=== PATIENT | male | born 1980 | race African-American/Black ===

== ENCOUNTER 2019-06-11 11:22 | Emergency (ER) | payer SELFPAY ==
[2019-06-11 11:46] VITALS: BP 112/66
[2019-06-11] MEDS ORDERED: LIDOCAINE 1% INJ-PF (10 MG/ML) 30 ML SDV INJ ONE (12:34)
--- NOTE | 2019-06-11 12:38 | ER Document Report ---
HPI - HPI Time Seen by Provider: 06/11/19 12:21 Notes: Patient is a 38-year-old male presenting to the emergency department with chief complaint of laceration. Patient reports he was hanging around with a knife last night when it slipped and cut his left wrist. He states this occurred approximately 12 hours prior to arrival. He reports his tetanus shot is up-to-date. Past Medical History - General Information source: Patient - Social History Smoking Status: Never Smoker Frequency of alcohol use: None Drug Abuse: None Lives with: Alone Family History: Reviewed & Not Pertinent - Medical History Medical History: Negative Surgical Hx: Negative - Immunizations Hx Diphtheria, Pertussis, Tetanus Vaccination: Yes Vertical Provider Document - CONSTITUTIONAL Notes: PHYSICAL EXAMINATION: GENERAL: Well-appearing, well-nourished and in no acute distress. HEAD: Atraumatic, normocephalic. EYES: Pupils equal round extraocular movements intact, conjunctiva are normal. ENT: Nares patent NECK: Normal range of motion LUNGS: No respiratory distress Musculoskeletal: Normal range of motion to left wrist, strong radial pulse, cap refill less than 3 seconds. NEUROLOGICAL: Normal speech, normal gait. PSYCH: Normal mood, normal affect. SKIN: 2 cm superficial laceration noted to posterior left wrist, approximates well, no active bleeding noted. - INFECTION CONTROL TRAVEL OUTSIDE OF THE [place] IN LAST 30 DAYS: No Course - Re-evaluation Re-evalutation: Tdap is up-to-date per patient. Laceration repaired under sterile technique, patient tolerated well, see procedure note. Patient understands ED return precautions, verbalizes understanding of need to have sutures removed in 8 to 10 days. The patient's emergency department workup and current diagnosis were explained to the patient and or family. Follow-up instructions were provided. Medications if prescribed were discussed. Instructions for when to return to the emergency department including specific worrisome symptoms were discussed with the patient and/or family. - Vital Signs Vital signs: Temp Pulse Resp BP Pulse Ox 98.1 F 62 16 112/66 100 06/11/19 11:45 06/11/19 11:45 06/11/19 11:45 06/11/19 11:45 06/11/19 11:45 Procedures - Laceration/Wound Repair Left wrist Wound length (cm): 2 Wound's Depth, Shape: Superficial Laceration pre-procedure: Sterile PPE donned Anesthetic type: 1% Lidocaine Wound explored: Clean Wound Debrided: Minimal Wound Repaired With: Sutures Suture Size/Type: 4:0 Layer Closure?: No Post-procedure wound care: Sterile dressing applied Post-procedure NV exam normal: Yes Complications: No Discharge - Discharge Clinical Impression: Laceration Condition: Stable Disposition: HOME, SELF-CARE Additional Instructions: Laceration Care Your laceration has been sutured to keep the skin edges aligned during healing. The time of suture removal depends on the nature and location of your cut. Please follow the care instructions the doctor has outlined for you and return for further care, according to the schedule you've been given. Keep the wound and dressing clean. Unless you were told otherwise, you may shower daily, blotting the wound dry with a clean, unused towel. At other times, If the dressing gets wet or blood soaked, remove it and blot the wound dry, then reapply a new dressing. Unless you were instructed otherwise, dressings should be changed at least daily. If any signs of infection occur (swelling, redness, increasing tenderness, red streaks, tender lumps in the armpit or groin above the laceration, or fever), see the doctor immediately. Please return to the emergency department or your primary care provider in 8-10 days for suture removal. Please return earlier if you develop any signs of infection such as increased redness, swelling, foul-smelling drainage or fever. Forms: Return to Work
== END 2019-06-11 12:57 | disposition home or self-care (01) ==
LOC: ER 11:22
DX: S61.512A Laceration without foreign body of left wrist, initial encounter (principal); W26.0XXA Contact with knife, initial encounter
CPT/HCPCS: 99282; 12001; J3490

== ENCOUNTER 2019-06-25 12:14 | Emergency (ER) | payer SELFPAY ==
[2019-06-25 12:23] VITALS: BP 116/72
--- NOTE | 2019-06-25 12:27 | ER Document Report ---
HPI - HPI Time Seen by Provider: 06/25/19 12:23 Pain Level: 1 Context: Patient is a 38-year-old male who presents the emergency department to have his sutures removed. Patient had his sutures placed 2 weeks ago. At that time he was playing around with a knife and excellently cut ends up self on his right wrist. Patient denies any body aches, fevers, chills, redness to the area, or any other symptoms. - ROS Systems Reviewed and Negative: Yes All other systems reviewed and negative - CONSTITUTIONAL Constitutional: DENIES: Fever, Chills - REPRODUCTIVE Reproductive: DENIES: : - MUSCULOSKELETAL Musculoskeletal: DENIES: Extremity pain, Swelling - DERM Skin Color: Normal Skin Problems: Laceration - right posterior wrist near base of thumb with 4 sutures in plac Past Medical History - Social History Smoking Status: Current Every Day Smoker Chew tobacco use (# tins/day): No Frequency of alcohol use: None Drug Abuse: None Family History: Reviewed & Not Pertinent Patient has suicidal ideation: No Patient has homicidal ideation: No - Immunizations Hx Diphtheria, Pertussis, Tetanus Vaccination: Yes Vertical Provider Document - CONSTITUTIONAL Agree With Documented VS: Yes Exam Limitations: No Limitations - INFECTION CONTROL TRAVEL OUTSIDE OF THE [place] IN LAST 30 DAYS: No - HEENT HEENT: Atraumatic, Normocephalic, PERRLA - RESPIRATORY Respiratory: No Respiratory Distress - CARDIOVASCULAR Cardiovascular: Regular Rate, Regular Rhythm Pulses: Normal: Radial - MUSCULOSKELETAL/EXTREMETIES Musculoskeletal/Extremeties: FROM, No Edema. negative: Eccymosis - NEURO Level of Consciousness: Awake, Alert, Appropriate - DERM Integumentary: Warm, Dry, No Rash, Laceration - with [address] to Right wrist Course - Re-evaluation Re-evalutation: 06/25/19 Patient had their sutures removed here in the emergency department. No edema, ecchymosis, erythema, or purulent drainage noted. Patient denies any fever, therefore I am very low suspicion for sepsis. Patient will follow-up with primary care provider as needed. Follow-up precautions were given. Verbal discharge instructions were given to the patient. They verbalized understanding. They are stable for discharge. - Vital Signs Vital signs: Temp Pulse Resp BP Pulse Ox 97.8 F 64 116/72 99 06/25/19 12:23 06/25/19 12:23 06/25/19 12:23 06/25/19 12:23 Discharge - Discharge Clinical Impression: Visit for suture removal Condition: Stable Disposition: HOME, SELF-CARE Additional Instructions: You were seen today in the emergency department to have your sutures removed. They removed here in the emergency department. If you notice any redness, develop a fever, or have any symptoms that are worrisome to you, please return to the emergency department to have the laceration rechecked.
== END 2019-06-25 12:33 | disposition home or self-care (01) ==
LOC: ER 12:14
DX: S61.511D Laceration without foreign body of right wrist, subsequent encounter (principal); W26.0XXD Contact with knife, subsequent encounter; F17.200 Nicotine dependence, unspecified, uncomplicated